=== PATIENT | male | born 1995 | race American Indian/Alaskan Native ===

== ENCOUNTER 2020-12-17 14:33 | Emergency (ER) | payer SELFPAY ==
[2020-12-17 14:48] VITALS: BP 125/73
[2020-12-17] MEDS ORDERED: DIPHtheria,PERTUSSIS(ACELL),TETANUS VACCINE/PF 0.5 ML VIAL IM ONE (15:12)
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
== END 2020-12-17 15:47 | disposition home or self-care (01) ==
LOC: ED 14:33
DX: M79.652 Pain in left thigh (principal); Z79.899 Other long term (current) drug therapy; W50.3XXA Accidental bite by another person, initial encounter; Y93.89 Activity, other specified; Y92.89 Other specified places as the place of occurrence of the external cause; Y99.8 Other external cause status
CPT/HCPCS: 90471; 90715; 99282